=== PATIENT | male | born 1955 | race African-American/Black ===

== ENCOUNTER 2021-05-20 11:53 | Emergency (ER) | payer MEDICARE, OTHER ==
[~2021-05-20] VITALS: Ht 172.7 cm; Wt 88.5 kg
--- NOTE | 2021-05-20 12:10 | NUR ---
The patient is bibs for c/o syncopal episode this morning, c/o back pain and R knee pain 8/10 PS. In room air and denies SOB. Respiration regular and unlabored. Will continue to monitor the patient.
[2021-05-20] MEDS ORDERED: IV NS 0.9% 500 ML BAG IV ONE (12:30)
--- NOTE | 2021-05-20 12:34 | NUR ---
THE PATIENT REFUSES IV INSERTION AND BLOOD DRAW DESPITE EXPLAINING RISKS AND BENEFITS. DR JIMENEZ AWARE
--- NOTE | 2021-05-20 12:34 | NUR ---
Javon balderrama in ED - 05/20/21 at 1340 by MICAH THE PATIENT REFUSES IV INSERTION AND BLOOD DRAW DESPITE EXPLAINING RISKS AND BENEFITS.
--- NOTE | 2021-05-20 13:30 | NUR ---
Patient discharged to home in stable condition. Written and verbal after care instructions given. Patient verbalizes understanding of instruction.
--- NOTE | 2021-05-20 13:40 | NUR ---
Javon balderrama in [facility] - 05/20/21 at 1340 by MICAH [id number]
[2021-05-20 13:45] VITALS: BP 134/87
== END 2021-05-20 13:32 | disposition home or self-care (01) ==
LOC: ER 12:00
DX: R55 Syncope and collapse (principal); M25.561 Pain in right knee; M54.9 Dorsalgia, unspecified; F32.9 Major depressive disorder, single episode, unspecified; F41.9 Anxiety disorder, unspecified; E78.00 Pure hypercholesterolemia, unspecified; Z88.8 Allergy status to other drugs, medicaments and biological substances; Z88.6 Allergy status to analgesic agent
CPT/HCPCS: 70450-TC; 71045-TC

== ENCOUNTER 2022-03-31 08:54 | Emergency (ER) | payer OTHER ==
[~2022-03-31] VITALS: Ht 172.7 cm; Wt 81.6 kg
--- NOTE | 2022-03-31 08:57 | NUR ---
called to triage no answer.
[2022-03-31 09:05] VITALS: BP 138/69
[2022-03-31] MEDS ORDERED: CHLO473M3 PO (09:37)
--- NOTE | 2022-03-31 09:45 | NUR ---
Patient discharged to home in stable condition. Written and verbal after care instructions given. Patient verbalizes understanding of instruction.
== END 2022-03-31 09:45 | disposition home or self-care (01) ==
LOC: ER 08:57
DX: K13.79 Other lesions of oral mucosa (principal); I12.0 Hypertensive chronic kidney disease with stage 5 chronic kidney disease or end stage renal disease; N18.6 End stage renal disease; E78.5 Hyperlipidemia, unspecified; F32.A Depression, unspecified; F41.9 Anxiety disorder, unspecified; Z99.2 Dependence on renal dialysis; Z88.8 Allergy status to other drugs, medicaments and biological substances; Z60.2 Problems related to living alone

== ENCOUNTER → 2022-04-09 | Emergency (ER) | payer OTHER ==
[~2022-04-09] VITALS: Ht 172.7 cm; Wt 81.6 kg
[~2022-04-09] MED LIST: CHLO473M3 PO
--- NOTE | 2022-04-09 12:35 | NUR ---
PT CAME IN C/O DIZZINESS STARTUING YESTURDAY,PT IS A/O X4 CONNECTED TO MONITOR.
[2022-04-09 13:14] LABS: BASOPHILS % (AUTO) 0.8 % (0.0-2.0); EOSINOPHILS % (AUTO) 4.7 % (0.0-6.0); HEMATOCRIT 36 % (39-51); HEMOGLOBIN 11.3 g/dL (13.5-17.5); LYMPHOCYTES # (AUTO) 1.2 K/uL (0.8-4.8); LYMPHOCYTES % (AUTO) 26.2 % (20.0-44.0); MEAN CORPUSCULAR HGB CONC 32 g/dl (31.0-36.0); MEAN CORPUSCULAR VOLUME 90 fL (80-96); MONOCYTES # (AUTO) 0.4 K/uL (0.1-1.30); MONOCYTES % (AUTO) 8.8 % (2.0-12.0); NEUTROPHILS # (AUTO) 2.7 K/uL (1.8-8.9); NEUTROPHILS % (AUTO) 59.5 % (43.0-81.0); PLATELET COUNT (AUTO) 239 K/uL (150-450); RED BLOOD CELL COUNT(AUTO) 3.97 MIL/uL (4.5-6.0); WHITE BLOOD COUNT (AUTO) 4.6 K/uL (4.3-11.0)
[2022-04-09 14:05] LABS: CALCIUM, SERUM 9.3 mg/dL (8.5-10.1); CARBON DIOXIDE 30 mmol/L (21-32); CHLORIDE 100 mmol/L (98-107); GLUCOSE 98 mg/dL (74-106); POTASSIUM 4.6 mmol/L (3.5-5.1); SODIUM SERUM 142 mmol/L (136-145); UREA NITROGEN, BLOOD 20 mg/dL (7-18)
[2022-04-09 14:11] LABS: ALANINE AMINOTRANSFERASE 27 U/L (12-78); ALBUMIN 3.9 g/dL (3.4-5.0); ALKALINE PHOSPHATASE 73 U/L (46-116); ASPARTATE AMINOTRANSFERASE 21 U/L (15-37); BILIRUBIN,DIRECT 0.1 mg/dL (0.0-0.2); BILIRUBIN,TOTAL 0.5 mg/dL (0.2-1.0); TOTAL PROTEIN, SERUM 7.6 g/dL (6.4-8.2)
--- NOTE | 2022-04-09 16:23 | NUR ---
Patient discharged to home in stable condition. Written and verbal after care instructions given. Patient verbalizes understanding of instruction.IV removed. Catheter intact and site benign. Pressure and 4x4 applied to site. No bleeding noted.
[2022-04-09 16:24] VITALS: BP 135/85
== END | disposition home or self-care (01) ==
LOC: ER 12:27
DX: R42 Dizziness and giddiness (principal); I12.0 Hypertensive chronic kidney disease with stage 5 chronic kidney disease or end stage renal disease; N18.6 End stage renal disease; R94.31 Abnormal electrocardiogram [ECG] [EKG]; E78.5 Hyperlipidemia, unspecified; F32.A Depression, unspecified; F41.9 Anxiety disorder, unspecified; E78.00 Pure hypercholesterolemia, unspecified; Z99.2 Dependence on renal dialysis; Z88.8 Allergy status to other drugs, medicaments and biological substances; Z60.2 Problems related to living alone; Z79.899 Other long term (current) drug therapy
CPT/HCPCS: 36415; 70450-TC; 71045-TC; 80048-TC; 80076-TC; 84484-TC; 85025-TC

== ENCOUNTER 2023-08-11 14:49 | Emergency (ER) | payer MEDICARE, OTHER ==
[~2023-08-11] VITALS: Ht 167.6 cm; Wt 77.1 kg
[2023-08-11 15:13] VITALS: BP 135/52; TEMP 98.7; O2SAT 98
[2023-08-11] MEDS ORDERED: FLUT1DIS3 INH (15:34)
[2023-08-11] MEDS ORDERED: IPRA12.9 INH (15:34)
[2023-08-11] MEDS ORDERED: ALBU8.5H8 INH (15:34)
[2023-08-11] MEDS ORDERED: NALO4SPR BNOSTRILS (15:34)
[2023-08-11] MEDS ORDERED: TIOT18CA3 INH (15:34)
== END 2023-08-11 15:39 | disposition home or self-care (01) ==
LOC: ER 14:56
DX: Z76.0 Encounter for issue of repeat prescription (principal); E78.5 Hyperlipidemia, unspecified; I12.0 Hypertensive chronic kidney disease with stage 5 chronic kidney disease or end stage renal disease; N18.6 End stage renal disease; E78.00 Pure hypercholesterolemia, unspecified; F32.A Depression, unspecified; F41.9 Anxiety disorder, unspecified; Z99.2 Dependence on renal dialysis; Z60.2 Problems related to living alone; Z79.899 Other long term (current) drug therapy; Z88.1 Allergy status to other antibiotic agents